=== PATIENT | male | born 2000 | race Two or more races ===

== ENCOUNTER 2019-03-01 22:06 | Emergency (ER) | payer SELFPAY ==
[~2019-03-01] VITALS: Ht 175.3 cm; Wt 77.1 kg
[2019-03-01 22:19] VITALS: BP 136/84
== END 2019-03-01 23:32 | disposition left against medical advice (07) ==
LOC: ER 22:06
DX: F41.9 Anxiety disorder, unspecified (principal); Z53.21 Procedure and treatment not carried out due to patient leaving prior to being seen by health care provider